=== PATIENT | female | born 1950 | race Caucasian/White ===

== ENCOUNTER 2016-11-20 08:06 | Outpatient (CLI) | payer OTHER ==
[~2016-11-20 08:06] MED LIST: OMEPRAZOLE40 MG; PRILOSEC40 MG PO
== END 2016-11-20 21:35 | disposition home or self-care (01) ==
LOC: MLB 08:06
PROVIDERS: ATTEND Family Medicine
DX: I25.10 Atherosclerotic heart disease of native coronary artery without angina pectoris (principal); E78.5 Hyperlipidemia, unspecified; E55.9 Vitamin D deficiency, unspecified

== ENCOUNTER 2017-03-21 08:09 | Outpatient (CLI) | payer OTHER ==
[~2017-03-21 08:09] MED LIST changes: +OMEP40EC1 PO; +OMEP40EC14; -OMEPRAZOLE40 MG; -PRILOSEC40 MG PO
[2017-03-21 08:48] LABS: ALBUMIN 3.9 g/dL (3.4-5.0); ANION GAP 12.9 (8-16); CARBON DIOXIDE 25.2 mmol/L (21-32); CHOL/HDL RATIO 3.6 (1-4.5); CREATININE 1.1 mg/dL (0.6-1.3); POTASSIUM 4.1 mmol/L (3.5-5.1); TOTAL BILIRUBIN 0.7 mg/dL (0.0-1.0)
== END 2017-03-21 19:39 | disposition home or self-care (01) ==
LOC: MLB 08:09
PROVIDERS: ATTEND Family Medicine
DX: N18.3 Chronic kidney disease, stage 3 (moderate) (principal); I25.10 Atherosclerotic heart disease of native coronary artery without angina pectoris; N95.9 Unspecified menopausal and perimenopausal disorder; E78.2 Mixed hyperlipidemia; E55.9 Vitamin D deficiency, unspecified; Z68.26 Body mass index [BMI] 26.0-26.9, adult
CPT/HCPCS: 36415; 80053

== ENCOUNTER 2017-04-16 08:39 | Outpatient (CLI) | payer OTHER ==
[~2017-04-16 08:39] MED LIST changes: -OMEP40EC1 PO; -OMEP40EC14; +OMEPRAZOLE40 MG; +PRILOSEC40 MG PO
== END 2017-04-16 20:17 | disposition home or self-care (01) ==
LOC: MUS 08:39
PROVIDERS: ATTEND Family Medicine
DX: R22.0 Localized swelling, mass and lump, head (principal)

== ENCOUNTER 2017-06-08 13:38 | Emergency (ER) | payer OTHER ==
[~2017-06-08] VITALS: Ht 160 cm; Wt 69.9 kg
[~2017-06-08 13:38] MED LIST changes: +OMEP40EC1 PO; +OMEP40EC14; -OMEPRAZOLE40 MG; -PRILOSEC40 MG PO
[2017-06-08 13:40] VITALS: BP 144/85
--- NOTE | 2017-06-08 13:42 | NUR ---
67/F BIB SON C/O SOB/COUGH X3 DAYS. PT STATES WHILE SHE IS IN THE MIDDLE OF A COUGHING BOUT, SHE GETS VERY SOB AND BEGINS TO PANIC. HX MA 2013. DENIES N/V/D; SKIN IS PINK/WARM/DRY; AAOX4 WITH EVEN AND STEADY GAIT; LUNGS CLEAR BL; PATIENT STATES PAIN OF 10/10 AT THIS TIME; PATIENT POSITIONED FOR COMFORT; HOB ELEVATED; BEDRAILS UP X2; BED DOWN. ER MD MADE AWARE OF PT STATUS.
--- NOTE | 2017-06-08 13:47 | NUR ---
Patient being evaluated by DR MCKENZIE at bedside.
--- NOTE | 2017-06-08 13:59 | NUR ---
EKG AT BEDSIDE.
--- NOTE | 2017-06-08 14:08 | NUR ---
X RAY AT BEDSIDE.
[2017-06-08 14:36] VITALS: BP 134/72
--- NOTE | 2017-06-08 14:36 | NUR ---
Patient discharged with BP 134/72; DENIES HEADACHE AT THIS TIME. Written and verbal after care instructions given and explained. Patient alert, oriented and verbalized understanding of instructions. Ambulatory with steady gait. All questions addressed prior to discharge. ID band removed. Patient advised to follow up with PMD. Rx of ALBUTEROL, CLARITIN-D & PREDNISONE given. Patient educated on indication of medication including possible reaction and side effects. Opportunity to ask questions provided and answered.
== END 2017-06-08 14:36 | disposition home or self-care (01) ==
LOC: MED 13:38
DX: J40 Bronchitis, not specified as acute or chronic (principal); R03.0 Elevated blood-pressure reading, without diagnosis of hypertension; I25.2 Old myocardial infarction; Z88.6 Allergy status to analgesic agent; Z79.899 Other long term (current) drug therapy; Z87.891 Personal history of nicotine dependence
CPT/HCPCS: 71010; 93005; 99284

== ENCOUNTER 2018-09-26 09:11 | Outpatient (CLI) | payer OTHER ==
[2018-09-26 10:05] LABS: BASOPHILS # (AUTO) 0.1 K/uL (0.00-0.22); BASOPHILS % (AUTO) 1.3 % (0.0-2.0); EOSINOPHILS # (AUTO) 0.4 K/uL (0-0.4); EOSINOPHILS % (AUTO) 5.6 % (0.0-4.0); HEMATOCRIT 45.3 % (36-48); HEMOGLOBIN 15.1 g/dL (12.0-16.0); LYMPHOCYTES % (AUTO) 16.4 % (20.5-51.1); MEAN CORPUSCULAR HEMOGLOBIN 32 pg (27-31); MEAN CORPUSCULAR HGB CONC 33 g/dL (33-37); MEAN CORPUSCULAR VOLUME 94.6 fL (80-94); MONOCYTES # (AUTO) 0.5 K/uL (0.8-1.0); MONOCYTES % (AUTO) 7.6 % (1.7-9.3); NEUTROPHILS # (AUTO) 4.4 K/uL (1.8-7.7); NEUTROPHILS % (AUTO) 69.1 % (42.2-75.2); PLATELET COUNT (AUTO) 306 K/uL (140-450); RED BLOOD CELL COUNT(AUTO) 4.79 MIL/uL (4.20-5.40); RED CELL DISTRIBUTION WIDTH 13.3 % (11.6-13.7); WHITE BLOOD COUNT (AUTO) 6.3 K/uL (4.8-10.8)
[2018-09-26 10:34] LABS: ALBUMIN 4.3 g/dL (3.4-5.0); CARBON DIOXIDE 29.4 mmol/L (21-32); CREATININE 1.2 mg/dL (0.6-1.3); POTASSIUM 5.4 mmol/L (3.5-5.1); THYROID STIMULATING HORMONE 0.8 uIU/mL (0.34-3.74); TOTAL BILIRUBIN 0.9 mg/dL (0.0-1.0)
== END 2018-09-26 20:23 | disposition home or self-care (01) ==
LOC: MLB 09:11
PROVIDERS: ATTEND Family Medicine
DX: I10 Essential (primary) hypertension (principal); I25.10 Atherosclerotic heart disease of native coronary artery without angina pectoris; E55.9 Vitamin D deficiency, unspecified
CPT/HCPCS: 36415; 80053; 82272; 82306; 84443; 85025